=== PATIENT | male | born 1970 | race Two or more races ===

== ENCOUNTER 2017-11-12 14:01 | Day surgery (SDC) | payer BC ==
[~2017-11-12] VITALS: Ht 167.6 cm; Wt 107.8 kg
[2017-11-12 14:47] VITALS: BP 158/93
[2017-11-12 14:56] VITALS: BP 158/93
[2017-11-12 15:01] LABS: INTER. NORMALIZED RATIO 1.1
[2017-11-12 15:04] LABS: PTT 27.3 SEC (25-37)
[2017-11-12] MEDS ORDERED: MOTRIN600 MG PO (21:30)
[2017-11-12] MEDS ORDERED: HYDROCODON-ACE1 EAC7 PO (21:30)
[2017-11-12] MEDS ORDERED: COLACE100 MG PO (21:32)
[2017-11-12 22:56] VITALS: BP 137/77
== END 2017-11-13 00:28 | disposition home or self-care (01) ==
LOC: SDC 14:01 → 2EAST 20:27 → ENRESERV 22:26 → 2EAST 11-13 00:28
PROVIDERS: Thoracic Surgery (Cardiothoracic Vascular Surgery)
PROC: 0WUF0JZ Supplement Abdominal Wall with Synthetic Substitute, Open Approach (ICD-10-PCS; principal; 2017-11-12)
DX: K43.6 Other and unspecified ventral hernia with obstruction, without gangrene (principal); Z87.891 Personal history of nicotine dependence; Z82.49 Family history of ischemic heart disease and other diseases of the circulatory system; Z80.6 Family history of leukemia
CPT/HCPCS: 85610; 85730; 88302; C1781; G0378; J0131; J0690; J0696; J1100; J1170; J1885; J2250; J2405; J2710; J3010; J7643